=== PATIENT | female | born 1995 ===

== ENCOUNTER 2021-07-04 00:15 | Inpatient (IN) | payer BC ==
[2021-07-04] MEDS ORDERED: Sodium Chloride 0.9% 10 ML Syringe FLUSH PRN (00:53)
[2021-07-04] MEDS ORDERED: Ondansetron 4 MG/2 ML SDV IVPUSH PRN (00:53)
[2021-07-04] MEDS ORDERED: Methylergonovine 0.2 MG/1 ML Amp IM PRN (00:53)
[2021-07-04] MEDS ORDERED: Lidocaine 1% 50 ML MDV INJECT PRN (00:53)
[2021-07-04] MEDS ORDERED: Carboprost Tromethamine 250 MCG/1 ML Amp IM PRN (00:53)
[2021-07-04] MEDS ORDERED: Misoprostol 25 MCG (1/4 of 100 MCG) Tab VAG PRN ×2 (00:53)
[2021-07-04] MEDS ORDERED: Butorphanol 1 MG/ML SDV IVPUSH PRN (00:53)
[2021-07-04] MEDS ORDERED: Sodium Chloride 0.9% 10 ML SDV IV PRN (00:53)
[2021-07-04] MEDS ORDERED: Terbutaline 1 MG/ML SDV SUBCUT PRN (00:53)
[2021-07-04] MEDS ORDERED: Tranexamic Acid 1,000 MG in Sodium Chloride 0.9% 100 ML IV PRN (00:53)
[2021-07-04] MEDS ORDERED: Nalbuphine 10 MG/1 ML Vial IVPUSH PRN (00:53)
[2021-07-04] MEDS ORDERED: Misoprostol 200 MCG Tab PO PRN (00:53)
[2021-07-04] MEDS ORDERED: Water For Irrigation,Sterile 1,000 ML Container IRR PRN (00:53)
[2021-07-04] MEDS ORDERED: Sodium Chloride 0.9% 2.5 ML Syringe FLUSH PRN (00:53)
[2021-07-04] MEDS ORDERED: Oxytocin/0.9 % Sodium Chloride 30 UNIT/500 ML BAG IV SCH ×2 (01:00)
[2021-07-04] MEDS ORDERED: Misoprostol 25 MCG (1/4 of 100 MCG) Tab PO SCH (01:15)
--- NOTE | 2021-07-04 06:00 | PCM.LDHP ---
L&D History of Present Illness - General Date of Service: 07/04/21 Admit Problem/Dx: Patient Status Order with Admit Dx/Problem 07/04/21 00:53 Patient Status [ADT] Routine Admission Diagnosis/Problem Admission Diagnosis/Problem 07/04/21 05:55 Beata is a 26 yo at 39+1 weeks gestation (MARIA ELENA(US) 07/10/2021) that presents to L&D today for elective IOL with cervical ripening. Patient seen in office 07/01/2021, RBAs of IOL and mode of cervical ripening (cytotec) discussed in office, consents signed. Reports adequate movement. Denies luz maria vaginal bleeding, pain, LOF at this time. B pos, RI, GBS neg. EFW via Leopolds 8+ lbs. Unremarkable medical history. NKDA. Medications: PNV. Patient has no other complaints or concerns at this time and desires to continue with IOL. Source of Information: Patient History Limitations: Reports: No Limitations - History of Present Illness Improves with: Reports: None Worsens with: Reports: None Associated Symptoms: Reports: N - Related Data Allergies/Adverse Reactions: Allergies Allergy/AdvReac Type Severity Reaction Status Date / Time No Known Allergies Allergy Verified 07/04/21 00:49 Home Medications: Home Meds Vit No.129/Iron/FA [ One Daily Tablet] 1 caplet PO DAILY 07/04/21 [History] Past Medical History - Past Health History Medical/Surgical History: Denies Medical/Surgical History Cardiovascular History: Reports: None Respiratory History: Reports: None Gastrointestinal History: Reports: None Genitourinary History: Reports: None 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: : 2 Para: 1 LMP (Approximate): Musculoskeletal History: Reports: None Neurological History: Reports: None, Migraines Psychiatric History: Reports: None Endocrine/Metabolic History: Reports: None Hematologic History: Reports: None Immunologic History: Reports: None Oncologic (Cancer) History: Reports: None Dermatologic History: Reports: None - Infectious Disease History Infectious Disease History: Reports: Novel Coronavirus - Past Surgical History Head Surgeries/Procedures: Reports: None HEENT Surgical History: Reports: Oral Surgery Other HEENT Surgeries/Procedures: [place] tooth extraction. Female Surgical History: Reports: None Neurological Surgical History: Reports: None Social & Family History - Family History OBGYN: Reports: Oncologic: Reports: Breast, Colon - Tobacco Use Tobacco Use Status *Q: Never Tobacco User Second Hand Smoke Exposure: No - Caffeine Use Caffeine Use: Reports: None - Alcohol Use Alcohol Use History: No - Recreational Drug Use Recreational Drug Use: No H&P Review of Systems - Review of Systems: Review Of Systems: Comprehensive ROS is negative, except as noted in HPI. General: Reports: No Symptoms HEENT: Reports: No Symptoms Pulmonary: Reports: No Symptoms Cardiovascular: Reports: No Symptoms Gastrointestinal: Reports: No Symptoms Genitourinary: Reports: No Symptoms Musculoskeletal: Reports: No Symptoms Skin: Reports: No Symptoms Psychiatric: Reports: No Symptoms Neurological: Reports: No Symptoms Hematologic/Lymphatic: Reports: No Symptoms Immunologic: Reports: No Symptoms L&D Exam - Exam Exam: See Below - Vital Signs Vital Signs: VSS, afebrile. See antepartum flowsheet. Weight: 173 lb - OB Specific Fundal Height In cm: 37 Contraction Duration (sec): 60-110 Contraction Frequency (min): 5-6 Contraction Intensity: Moderate Movement: Active Heart Tones: Present Heart Tones per Min: 130 Heart Rate (FHR) Variability: Moderate (6-25 bpm) Presentation: Vertex (via SVE) - Galvan Score Galvan Score Cervix Position: Posterior Galvan Score Consistency: Soft Galvan Score Effacement: 31-50% Galvan Score Dilation: 1-2 cm Galvan Score Infant's Station: -2 Galvan Score Total: 5 - Exam General: Alert, Oriented, Cooperative HEENT: Conjunctiva Clear, Hearing Intact, Mucosa Moist & Mondamin, PERRLA Neck: Supple, Trachea Midline Lungs: Clear to Auscultation, Normal Respiratory Effort Cardiovascular: Regular Rate, Regular Rhythm GI/Abdominal Exam: Normal Bowel Sounds, Soft, Non-Tender, No Organomegaly, No Distention Rectal Exam: Deferred Genitourinary: Normal external exam, Enlarged uterus (Gravid uterus) Back Exam: Normal Inspection, Full Range of Motion Extremities: Normal Inspection, Normal Range of Motion, Non-Tender, No Pedal Edema, Normal Capillary Refill Skin: Warm, Dry, Intact Neurological: Cranial Nerves Intact, Reflexes Equal Bilateral Psychiatric: Alert, Normal Affect, Normal Mood - Patient Data Lab Results Last 24 hrs: Laboratory Results - last 24 hr 07/04/21 07/04/21 07/04/21 Range/Units 00:35 00:35 00:35 WBC 11.19 H (4.0-11.0) K/uL RBC 3.96 L (4.30-5.90) M/uL Hgb 11.7 L (12.0-16.0) g/dL Hct 35.4 L (36.0-46.0) % MCV 89.4 (80.0-98.0) fL MCH 29.5 (27.0-32.0) pg MCHC 33.1 (31.0-37.0) g/dL RDW Std Deviation 42.6 (28.0-62.0) fl RDW Coeff of Akira 13 (11.0-15.0) % Plt Count 124 L (150-400) K/uL MPV 11.80 (7.40-12.00) fL SARS-CoV-2 RNA ([place]) NEGATIVE (NEGATIVE) Blood Type B POSITIVE Antibody Screen NEGATIVE Result Diagrams: 07/04/21 00:35 - Problem List (1) Encounter for elective induction of labor SNOMED Code(s): 719562759 ICD Code: Z34.90 - ENCNTR FOR SUPRVSN OF NORMAL , UNSP, UNSP TRIMESTER Status: Acute Priority: High Current Visit: Yes (2) 39 weeks gestation of SNOMED Code(s): 51795043 ICD Code: Z3A.39 - 39 WEEKS GESTATION OF Status: Acute Priority: High Current Visit: Yes Problem List Initiated/Reviewed/Updated: Yes Orders Last 24hrs: Active Orders 24 hr Category Date Time Status Patient Status [ADT] Routine ADT 07/04/21 00:53 Active Bedrest Bathroom Privileges [RC] ASDIRECTED Care 07/04/21 00:53 Active Communication Order [RC] ASDIRECTED Care 07/04/21 00:53 Active Communication Order [RC] ASDIRECTED Care 07/04/21 00:53 Active Communication Order [RC] ASDIRECTED Care 07/04/21 00:53 Active Heart Tones [RC] CONTINUOUS Care 07/04/21 00:53 Active Non Stress Test [RC] PER UNIT ROUTINE Care 07/04/21 00:53 Active May Shower [RC] ASDIRECTED Care 07/04/21 00:53 Active Notify Provider [RC] PRN Care 07/04/21 00:53 Active Notify Provider [RC] PRN Care 07/04/21 00:53 Active Notify Provider [RC] PRN Care 07/04/21 00:53 Active Notify Provider [RC] STAT Care 07/04/21 00:53 Active Up ad Mary [RC] ASDIRECTED Care 07/04/21 00:53 Active Vaginal Exam [RC] PRN Care 07/04/21 00:53 Active Vaginal Exam [RC] PRN Care 07/04/21 00:53 Active Vital Signs [RC] PER UNIT ROUTINE Care 07/04/21 00:53 Active Vital Signs [RC] PER UNIT ROUTINE Care 07/04/21 00:53 Active RPR (SYPHILIS SERO) W/ RFLX [REF] Routine Lab 07/04/21 00:35 Received Butorphanol [Stadol] Med 07/04/21 00:53 Active 1 mg IVPUSH Q1H PRN Carboprost Tromethamine [Hemabate DS] Med 07/04/21 00:53 Active 250 mcg IM ASDIRECTED PRN Lactated Ringers [Ringers, Lactated] 1,000 ml Med 07/04/21 01:00 Active IV ASDIRECTED Lidocaine 1% [Xylocaine 1%] Med 07/04/21 00:53 Active 50 ml INJECT ONETIME PRN Methylergonovine [Methergine] Med 07/04/21 00:53 Active 0.2 mg IM ASDIRECTED PRN Nalbuphine [Nubain] Med 07/04/21 00:53 Active 10 mg IVPUSH Q1H PRN Ondansetron [Zofran] Med 07/04/21 00:53 Active 4 mg IVPUSH Q4H PRN Oxytocin/0.9 % Sodium Chloride [Oxytocin 30 Unit/500 ML Med 07/04/21 01:00 Active -NS] 30 unit in 500 ml IV TITRATE Oxytocin/0.9 % Sodium Chloride [Oxytocin 30 Unit/500 ML Med 07/04/21 01:00 Active -NS] 30 unit in 500 ml IV TITRATE Sodium Chloride 0.9% [Normal Saline] Med 07/04/21 00:53 Active 10 ml IV ASDIRECTED PRN Sodium Chloride 0.9% [Saline Flush] Med 07/04/21 00:53 Active 10 ml FLUSH ASDIRECTED PRN Sodium Chloride 0.9% [Saline Flush] Med 07/04/21 00:53 Active 2.5 ml FLUSH ASDIRECTED PRN Terbutaline [Brethine] Med 07/04/21 00:53 Active 0.25 mg SUBCUT ASDIRECTED PRN Tranexamic Acid [Cyklokapron] 1,000 mg Med 07/04/21 00:53 Active Sodium Chloride 0.9% [Normal Saline] 100 ml IV ONETIME Water For Irrigation,Sterile [Sterile Water for Med 07/04/21 00:53 Active Irrigation] 1,000 ml IRR ASDIRECTED PRN miSOPROStoL [Cytotec] Med 07/04/21 00:53 Active 200 mcg PO ONETIME PRN miSOPROStoL [Cytotec] Med 07/04/21 01:15 Active 25 mcg PO Q4H miSOPROStoL [Cytotec] Med 07/04/21 00:53 Active 25 mcg VAG ONETIME PRN miSOPROStoL [Cytotec] Med 07/04/21 00:53 Active 25 mcg VAG Q4H PRN Scalp Electrode [WOMSER] Per Unit Routine Oth 07/04/21 00:53 Ordered Medication Administration Instruction [OM.PC] Q4H Oth 07/04/21 01:00 Ordered Medication Administration Instruction [OM.PC] Q4H Oth 07/04/21 05:00 Ordered Medication Administration Instruction [OM.PC] Q4H Oth 07/04/21 09:00 Ordered Medication Administration Instruction [OM.PC] Q4H Oth 07/04/21 13:00 Ordered Medication Administration Instruction [OM.PC] Q4H Oth 07/04/21 17:00 Ordered Medication Administration Instruction [OM.PC] Q4H Oth 07/04/21 21:00 Ordered Peripheral IV Insertion Adult [OM.PC] Routine Oth 07/04/21 00:53 Ordered Resuscitation Status Routine Resus Stat 07/04/21 00:53 Ordered Medication Orders Butorphanol Tartrate (Butorphanol 1 Mg/Ml Sdv) 1 mg IVPUSH Q1H PRN PRN Reason: Pain (severe 7-10) Carboprost Tromethamine (Carboprost Tromethamine 250 Mcg/1 Ml Amp) 250 mcg IM ASDIRECTED PRN PRN Reason: Post Hemorrhage Oxytocin/Sodium Chloride (Oxytocin 30 Unit/500 Ml-Ns) 30 unit in 500 mls @ 999 mls/hr IV TITRATE CLAUDE Tranexamic Acid 1,000 mg/ (Sodium Chloride) 110 mls @ 660 mls/hr IV ONETIME PRN PRN Reason: Bleeding Oxytocin/Sodium Chloride (Oxytocin 30 Unit/500 Ml-Ns) 30 unit in 500 mls @ 2 mls/hr IV TITRATE CLAUDE; Protocol Lactated Ringer's (Ringers, Lactated) 1,000 mls @ 150 mls/hr IV ASDIRECTED CLAUDE Lidocaine HCl (Lidocaine 1% 50 Ml Mdv) 50 ml INJECT ONETIME PRN PRN Reason: Laceration repair Methylergonovine Maleate (Methylergonovine 0.2 Mg/1 Ml Amp) 0.2 mg IM ASDIRECTED PRN PRN Reason: Post Hemorrhage Misoprostol (Misoprostol 200 Mcg Tab) 200 mcg PO ONETIME PRN PRN Reason: Post Hemorrhage Misoprostol (Misoprostol 25 Mcg (1/4 Of 100 Mcg) Tab) 25 mcg VAG ONETIME PRN PRN Reason: Cervical Ripening Misoprostol (Misoprostol 25 Mcg (1/4 Of 100 Mcg) Tab) 25 mcg VAG Q4H PRN PRN Reason: Cervical Ripening Last Admin: 07/04/21 01:45 Dose: 25 mcg Documented by: LINDA Misoprostol (Misoprostol 25 Mcg (1/4 Of 100 Mcg) Tab) 25 mcg PO Q4H CLAUDE Last Admin: 07/04/21 01:45 Dose: 25 mcg Documented by: LINDA Nalbuphine HCl (Nalbuphine 10 Mg/1 Ml Vial) 10 mg IVPUSH Q1H PRN PRN Reason: Pain (severe 7-10) Ondansetron HCl (Ondansetron 4 Mg/2 Ml Sdv) 4 mg IVPUSH Q4H PRN PRN Reason: Nausea/Vomiting Sodium Chloride (Sodium Chloride 0.9% 10 Ml Syringe) 10 ml FLUSH ASDIRECTED PRN PRN Reason: Keep Vein Open Sodium Chloride (Sodium Chloride 0.9% 2.5 Ml Syringe) 2.5 ml FLUSH ASDIRECTED PRN PRN Reason: Keep Vein Open Sodium Chloride (Sodium Chloride 0.9% 10 Ml Sdv) 10 ml IV ASDIRECTED PRN PRN Reason: IV Use Sterile Water (Water For Irrigation,Sterile 1,000 Ml Container) 1,000 ml IRR ASDIRECTED PRN PRN Reason: delivery Terbutaline Sulfate (Terbutaline 1 Mg/Ml Sdv) 0.25 mg SUBCUT ASDIRECTED PRN PRN Reason: Tacysystole Assessment/Plan Comment:: Admit for observation in anticipation of of term viable . FHR Cat I. Spontaneous irregular contractions noted. Dose #1 cytotec administered at ~1 am. SROM noted and confirmed by clear luz maria vaginal fluid at ~ 0555. 50/-2. Administer 25 mcg orally only once now. Expectant management, reassess cervical dilation ~1000 am. If no change has been make, may consider augmentation per orders. May ambulate and hydrotherapy as desired after reactive NST achieved; repeat NST per orders. May receive epidural if desired 5+ cm. See new orders. Dr. Rosa notified and agreeable with POC.
[2021-07-04] MEDS ORDERED: Misoprostol 25 MCG (1/4 of 100 MCG) Tab PO STA (06:28)
[2021-07-04] MEDS: Lactated Ringers 1,000 ML IV SCH ×2 (10:25→13:29)
[2021-07-04] MEDS ORDERED: Ropivacaine HCl/PF 200 ML ONE (10:49)
[2021-07-04] MEDS ORDERED: Bisacodyl 10 MG Supp RECTAL PRN (16:16)
[2021-07-04] MEDS ORDERED: Lanolin 100% Cream 7 GM Tube TOP PRN (16:16)
[2021-07-04] MEDS ORDERED: Witch Hazel Medicated Pads 40/Jar TOP PRN (16:16)
[2021-07-04] MEDS ORDERED: Ibuprofen 400 MG Tab PO PRN (16:16)
[2021-07-04] MEDS ORDERED: Docusate Sodium 100 MG Cap PO PRN (16:16)
[2021-07-04] MEDS ORDERED: Benzocaine/Menthol 20%-0.5% Spray 78 GM Cannister TOP PRN (16:16)
[2021-07-04] MEDS ORDERED: oxyCODONE 5 MG Tab PO PRN (16:16)
[2021-07-04] MEDS ORDERED: Acetaminophen 500 MG Tab PO PRN ×2 (16:16)
[2021-07-04] MEDS: Ibuprofen 800 MG Tab PO PRN (16:35)
[2021-07-05] MEDS: Ibuprofen 800 MG Tab PO PRN (03:02)
--- NOTE | 2021-07-05 12:03 | OR ---
SURGEON: Julien Rosa MD DATE OF PROCEDURE: 07/04/2021 Ms. Godinez is a 26-year-old patient. She is para 1-0-0-1. She had uncomplicated care. Her GBS status was negative. She is followed mainly in the clinic by me. She is 39 plus weeks. She is admitted for social induction. She required Pitocin to augment her labor. She had epidural anesthesia for labor analgesia, and the patient became complete-complete, +2 at 3:30, and she was able to accomplish normal spontaneous vaginal delivery of a male fetus. score reported to be 8 and 9. The weight was not available at the time of the dictation. The placenta delivered spontaneous, complete, and intact. There were no perineal, labial, or vaginal tear. heart rate was category 1 through the entire process of labor. Estimated blood loss is 300 mL to 350 mL. There was no complication in the labor and delivery of this patient. LILO / JUHI /[id number]
--- NOTE | 2021-07-05 17:06 | PCM.DCSUM1 ---
Discharge Summary - Discharge Data Discharge Disposition: Home, Self-Care 01 Condition: Good - Referral to Home Health Primary Care Physician: PCP None - Discharge Plan Home Medications: Home Meds Vit No.129/Iron/FA [ One Daily Tablet] 1 caplet PO DAILY 07/04/21 [History] Patient Handouts: Baby Blues, Care After Vaginal Delivery - General Info Date of Service: 07/05/21 Admission Dx/Problem (Free Text: Patient Status Order with Admit Dx/Problem 07/04/21 00:53 Patient Status [ADT] Routine Admission Diagnosis/Problem Admission Diagnosis/Problem 07/04/21 05:55 Beata is a 26 yo at 39+1 weeks gestation (MARIA ELENA() 07/10/2021) that presents to L&D today for elective IOL with cervical ripening. Patient seen in office 07/01/2021, RBAs of IOL and mode of cervical ripening (cytotec) discussed in office, consents signed. Reports adequate movement. Denies luz maria vaginal bleeding, pain, LOF at this time. B pos, RI, GBS neg. EFW via Leopolds 8+ lbs. Unremarkable medical history. NKDA. Medications: PNV. Patient has no other complaints or concerns at this time and desires to continue with IOL. Functional Status: Reports: Pain Controlled - Review of Systems General: Reports: No Symptoms Psychiatric: Reports: No Symptoms - Patient Data Vitals - Most Recent: Last Vital Signs Temp 97.8 F 07/05/21 12:05 Pulse 114 H 07/05/21 12:05 Resp 18 07/05/21 12:05 BP 106/66 07/05/21 12:05 Pulse Ox 98 07/05/21 12:05 Weight - Most Recent: 78.471 kg Lab Results - Last 24 hrs: Laboratory Results - last 24 hr 07/05/21 Range/Units 05:50 Hgb 10.6 L (12.0-16.0) g/dL Hct 31.3 L (36.0-46.0) % Med Orders - Current: Current Medications Acetaminophen (Acetaminophen 500 Mg Tab) 500 mg PO Q4H PRN PRN Reason: Pain (mild 1-3) Acetaminophen (Acetaminophen 500 Mg Tab) 1,000 mg PO Q4H PRN PRN Reason: Pain (mild 1-3) Benzocaine/Menthol (Benzocaine/Menthol 20%-0.5% [place] 78 Gm Cannister) 78 gm TOP ASDIRECTED PRN PRN Reason: Perineal Comfort Measure Last Admin: 07/04/21 16:43 Dose: 1 canister Documented by: Bisacodyl (Bisacodyl 10 Mg Supp) 10 mg RECTAL ONETIME PRN PRN Reason: Constipation Butorphanol Tartrate (Butorphanol 1 Mg/Ml Sdv) 1 mg IVPUSH Q1H PRN PRN Reason: Pain (severe 7-10) Carboprost Tromethamine (Carboprost Tromethamine 250 Mcg/1 Ml Amp) 250 mcg IM ASDIRECTED PRN PRN Reason: Post Hemorrhage Docusate Sodium (Docusate Sodium 100 Mg Cap) 100 mg PO Q12H PRN PRN Reason: Constipation Last Admin: 07/05/21 03:02 Dose: 100 mg Documented by: Emollient Ointment (Lanolin 100% Cream 7 Gm Tube) 0 gm TOP ASDIRECTED PRN PRN Reason: Sore Nipples Last Admin: 07/04/21 16:37 Dose: 7 g Documented by: Oxytocin/Sodium Chloride (Oxytocin 30 Unit/500 Ml-Ns) 30 unit in 500 mls @ 999 mls/hr IV TITRATE CLAUDE Last Infusion: 07/04/21 16:21 Dose: 250 mls/hr Documented by: Tranexamic Acid 1,000 mg/ (Sodium Chloride) 110 mls @ 660 mls/hr IV ONETIME PRN PRN Reason: Bleeding Oxytocin/Sodium Chloride (Oxytocin 30 Unit/500 Ml-Ns) 30 unit in 500 mls @ 2 mls/hr IV TITRATE CLAUDE; Protocol Last Titration: 07/04/21 16:06 Dose: 0 munits/min, 0 mls/hr Documented by: Lactated Ringer's (Ringers, Lactated) 1,000 mls @ 150 mls/hr IV ASDIRECTED CLAUDE Last Admin: 07/04/21 13:29 Dose: 150 mls/hr Documented by: Ibuprofen (Ibuprofen 400 Mg Tab) 400 mg PO Q4H PRN PRN Reason: Pain (mild 1-3) Ibuprofen (Ibuprofen 800 Mg Tab) 800 mg PO Q6H PRN PRN Reason: Pain (mild 1-3) Last Admin: 07/05/21 03:02 Dose: 800 mg Documented by: Lidocaine HCl (Lidocaine 1% 50 Ml Mdv) 50 ml INJECT ONETIME PRN PRN Reason: Laceration repair Methylergonovine Maleate (Methylergonovine 0.2 Mg/1 Ml Amp) 0.2 mg IM ASDIRECTED PRN PRN Reason: Post Hemorrhage Misoprostol (Misoprostol 200 Mcg Tab) 200 mcg PO ONETIME PRN PRN Reason: Post Hemorrhage Misoprostol (Misoprostol 25 Mcg (1/4 Of 100 Mcg) Tab) 25 mcg VAG ONETIME PRN PRN Reason: Cervical Ripening Nalbuphine HCl (Nalbuphine 10 Mg/1 Ml Vial) 10 mg IVPUSH Q1H PRN PRN Reason: Pain (severe 7-10) Ondansetron HCl (Ondansetron 4 Mg/2 Ml Sdv) 4 mg IVPUSH Q4H PRN PRN Reason: Nausea/Vomiting Oxycodone HCl (Oxycodone 5 Mg Tab) 5 mg PO Q2H PRN PRN Reason: Pain (severe 7-10) Sodium Chloride (Sodium Chloride 0.9% 10 Ml Syringe) 10 ml FLUSH ASDIRECTED PRN PRN Reason: Keep Vein Open Sodium Chloride (Sodium Chloride 0.9% 2.5 Ml Syringe) 2.5 ml FLUSH ASDIRECTED PRN PRN Reason: Keep Vein Open Sodium Chloride (Sodium Chloride 0.9% 10 Ml Sdv) 10 ml IV ASDIRECTED PRN PRN Reason: IV Use Sterile Water (Water For Irrigation,Sterile 1,000 Ml Container) 1,000 ml IRR ASDIRECTED PRN PRN Reason: delivery Terbutaline Sulfate (Terbutaline 1 Mg/Ml Sdv) 0.25 mg SUBCUT ASDIRECTED PRN PRN Reason: Tacysystole Witch Sarah (Witch Sarah Medicated Pads 40/Jar) 1 pad TOP ASDIRECTED PRN PRN Reason: comfort care Last Admin: 07/04/21 16:43 Dose: 1 tub Documented by: Discontinued Medications Ropivacaine (Naropin 0.2%) Confirm Administered Dose 200 mls @ as directed .ROUTE .STK-MED ONE Stop: 07/04/21 10:50 Misoprostol (Misoprostol 25 Mcg (1/4 Of 100 Mcg) Tab) 25 mcg VAG Q4H PRN PRN Reason: Cervical Ripening Last Admin: 07/04/21 01:45 Dose: 25 mcg Documented by: Misoprostol (Misoprostol 25 Mcg (1/4 Of 100 Mcg) Tab) 25 mcg PO Q4H CLAUDE Last Admin: 07/04/21 01:45 Dose: 25 mcg Documented by: Misoprostol (Misoprostol 25 Mcg (1/4 Of 100 Mcg) Tab) 25 mcg PO ONETIME STA Stop: 07/04/21 06:29 Last Admin: 07/04/21 06:46 Dose: 25 mcg Documented by:
== END 2021-07-05 18:35 | disposition home or self-care (01) | DRG 560 ==
LOC: MW.OBCHECK 00:15 → MW.OB 00:17 → MW.OBCHECK 00:53 → OBSVTOIN 16:05 → MW.OB 21:07
PROVIDERS: ADMIT Obstetrics & Gynecology; ATTEND Obstetrics & Gynecology
PROC: 10E0XZZ Delivery of Products of Conception, External Approach (ICD-10-PCS; principal; 2021-07-04)
PROC: 3E0P7VZ Introduction of Hormone into Female Reproductive, Via Natural or Artificial Opening (ICD-10-PCS; 2021-07-04)
PROC: 3E0R3BZ Introduction of Anesthetic Agent into Spinal Canal, Percutaneous Approach (ICD-10-PCS; 2021-07-04)
DX: O80 Encounter for full-term uncomplicated delivery (principal); Z37.0 Single live birth; Z3A.39 39 weeks gestation of pregnancy; Z20.822 Contact with and (suspected) exposure to COVID-19
CPT/HCPCS: 36415; 51702; 59025; 59409; 85014; 85018; 85027; 86592; 86850; 86900; 86901; A9270-GY; J2590; J2795; J7120; U0002